=== PATIENT | female | born 1940 | race Caucasian/White ===

== ENCOUNTER 2020-01-21 18:35 | Emergency (ER) | payer MEDICARE, SELFPAY ==
--- NOTE | ~2020-01-21 | XR_ITS ---
EXAMINATION: XR chest 2V DATE: 01/21/2020 19:23 INDICATION: Chest pain and shortness of breath TECHNIQUE: frontal and lateral views of the chest were obtained. COMPARISON: Chest radiograph dated 06/29/2019 FINDINGS: The lungs remain clear with no focal airspace opacities, pulmonary edema, pleural effusion or pneumot horax. The cardiomediastinal silhouette is normal. Calcified subcarinal lymph node consistent with ol d granulomatous disease. Atherosclerotic aorta. Mild scattered degenerative skeletal changes. Lateral right clavicle resection. IMPRESSION: 1. No acute cardiopulmonary disease. Reviewed, dictated and finalized at location A. MOTIVE REPAIRER DIESEL
--- NOTE | ~2020-01-21 | CT_ITS ---
EXAMINATION: CTA chest PE protocol DATE: 01/21/2020 20:37 INDICATION: Chest pain. Dyspnea. TECHNIQUE: Computed tomography (CT) pulmonary angiogram of the chest was performed with 100 mL Omnipa que-350 intravenous contrast. Additional 3D reconstructions utilizing coronal maximum intensity proje ction (MIP) were performed. Automated exposure control and iterative reconstruction technique were em ployed. The dose-length product was 1001.39 mGy-cm. COMPARISON: None FINDINGS: Good contrast opacification of the pulmonary arteries. There is wall to moderate streak artifact from dense contrast in the superior vena cava and right atrium as well as cardiac monitoring leads. Mild to moderate scattered respiratory motion artifact. Overall this along with mild quantum mottle relate d to patient body habitus decreases sensitivity of the smaller subsegmental pulmonary arteries predom inantly at the lung bases. No definitive pulmonary embolism. Mild elevation of the left hemidiaphragm . Mild discoid atelectasis in the left lower lobe and lingula. No pneumonia, pulmonary edema or pleur al effusion. Cardiomegaly. Aortic valve calcification. No pericardial effusion. Thoracic aorta is nor mal in caliber with no dissection. Calcified mediastinal lymph nodes as well as multiple splenic and a few hepatic calcifications consistent with old granulomatous disease. No pathologically enlarged th oracic lymphadenopathy. Small sliding-type hiatal hernia versus wall thickening the distal esophagus. Cholecystectomy clips at the gallbladder fossa. There are bridging osteophytes at multiple levels in the spine, consistent with diffuse idiopathic skeletal hyperostosis (DISH). Distal right clavicle re section. IMPRESSION: 1. No pulmonary embolism. Sensitivity decreased in some of the smaller subsegmental pulmonary arterie s due to combination of streak and motion artifact along with mild quantum mottle from patient body h abitus. 2. Small hiatal hernia versus wall thickening in the distal esophagus suggesting possibility of reflu x. 3. Cardiomegaly. 4. Mild atelectasis in the lingula and left lower lobe with mild elevation of the left hemidiaphragm. Reviewed, dictated and finalized at location A. L MAKING SUPERVISOR IMPRESSION: 1. No pulmonary embolism. Sensitivity decreased in some of the smaller subsegme ntal pulmonary arteries due to combination of streak and motion artifact along with mild quantum mottle from patient body habitus. 2. Small hiatal hernia versus wall thickening in the distal esophagus suggestin g possibility of reflux. 3. Cardiomegaly. 4. Mild atelectasis in the lingula and left lower lobe with mild elevation of t he left hemidiaphragm.
[2020-01-21 18:40] VITALS: BP 197/87; PULSE 77; RESP 30; TEMP 37.6; O2SAT 99
--- NOTE | 2020-01-21 19:00 | ED.CHESTPAIN ---
HPI - Chest Pain General Chief Complaint: Chest Pain Stated Complaint: Chest pain Time Seen by Provider: 01/21/20 18:45 Source: patient Mode of arrival: ambulatory Limitations: no limitations History of Present Illness HPI narrative: 79-year-old with a history of COPD and who is oxygen dependent comes in today complaining of left-sided chest pain which is squeezing in nature and started about 45 minutes ago. Patient states that it has eased up some as she arrived. She has had no nausea, vomiting, lightheadedness, radiating pain, sweating , lightheadedness or syncope. she states she has been short of breath. On arrival her portable tank was empty. It is set on 4 liters/minute. She complain of left calf pain. MD complaint: chest pain Onset (ago): minute(s) (45) Timing of current episode: constant and still present Onset: during rest and after eating (10 minutes) Pain location: left chest Pain radiation: none Severity: severe Quality: tightness and sharp Relieving factors: nothing Exacerbating factors: nothing Associated symptoms: dyspnea Treatment prior to arrival: none Risk Factors Coronary artery disease risk factors: smoking history, hyperlipidemia and hypertension Related Data On Oral Contraceptives: No Home Medications Medication Instructions Recorded Confirmed aspirin [Aspirin Low Dose] 81 mg PO DAILY 01/21/20 01/21/20 citalopram 40 mg PO DAILY 01/21/20 01/21/20 famotidine 20 mg PO BID 01/21/20 01/21/20 ferrous sulfate 325 mg PO DAILY 01/21/20 01/21/20 folic acid 1 mg PO DAILY 01/21/20 01/21/20 furosemide 40 mg PO DAILY 01/21/20 01/21/20 glimepiride 1 mg PO DAILY 01/21/20 01/21/20 isosorbide mononitrate 30 mg PO DAILY 01/21/20 01/21/20 levothyroxine 175 mcg PO DAILY 01/21/20 01/21/20 lovastatin 20 mg PO DAILY 01/21/20 01/21/20 meloxicam 7.5 mg PO DAILY 01/21/20 01/21/20 montelukast 10 mg PO HS 01/21/20 01/21/20 ropinirole 0.5 mg PO HS 01/21/20 01/21/20 trazodone 50 mg PO HS 01/21/20 01/21/20 Allergies Allergy/AdvReac Type Severity Reaction Status Date / Time No Known Allergies Allergy Unverified 01/09/12 11:03 Review of Systems Constitutional: Constitutional: Denies chills, Denies fever(s) and Denies weakness Eyes: Eyes: Denies change in vision and Denies photophobia ENT: Denies dysphagia, Reports nasal congestion and Denies sore throat Cardiovascular: Cardiovascular: Reports chest pain, Denies rapid heart rate and Denies radiating jaw, neck or arm pain Respiratory: Respiratory: Reports chest congestion, Denies cough, Reports dyspnea and Reports wheezing Gastrointestinal: Gastrointestinal: Denies abdominal pain, Denies nausea and Denies vomiting Musculoskeletal: Musculoskeletal: Reports as per HPI and Denies joint swelling Comments: left lower leg pain Integumentary/Breasts: Skin/Breast: Denies pruritus, Denies erythema and Denies rash Neurologic: Denies vertigo, Denies dizziness and Denies syncope Psychiatric: Psychiatric: Denies anxiety and Denies depression Endocrine: Endocrine: Denies polydipsia and Denies polyuria Hematologic/Lymphatic: Hematologic/Lymphatic: Denies easy bleeding and Denies easy bruising Allergic/Immunologic: Allergic/Immunologic: Denies lip swelling and Reports wheezing (chronic) [facility] Past Medical History Medical History Anxiety CHF (congestive heart failure) COPD (chronic obstructive pulmonary disease) Depression Dyslipidemia GERD (gastroesophageal reflux disease) Hypothyroidism Neuropathy T2DM (type 2 diabetes mellitus) Surgical History Surgical History History of appendectomy History of ear surgery Hx of cardiac cath Hx of cholecystectomy Social History Social History Smoking status: Former smoker Alcohol intake: current Alcohol use details: Drinks socially Substance use: never
--- NOTE | 2020-01-21 19:02 | ECG_ITS ---
Measurements Intervals [place] Rate: P: GA: QRS: QRSD: T: QT: QTc: Interpretive Statements SINUS RHYTHM ATRIAL COUPLETS INCOMPLETE RIGHT BUNDLE BRANCH BLOCK DELAYED PRECORDIAL R/S TRANSITION INFERIOR INFARCT, AGE INDETERMINATE BORDERLINE ST-T WAVE ABNORMALITY- LATERAL LEADS BASELINE ARTIFACT- I, II, III, AVR, AVL, AVF ABNORMAL ECG Electronically Signed On 01-22-2020 7:36:20 TRANSCRIPTER by Zach Deleon D.O.
[2020-01-21 19:18] LABS: Basophils Absolute Auto 0.03 K/mm3 (0.00-0.10); Basophils Percent Auto 0.4 % (0.0-1.0); Eosinophils Absolute Auto 0.23 K/mm3 (0.02-0.50); Eosinophils Percent Auto 3.2 % (1.0-6.0); Hematocrit 39.8 % (35.0-42.0); Hemoglobin 12.1 g/dL (11.7-13.8); Immature Granulocyte Absolute 0.04 K/mm3 (0.00-0.00); Immature Granulocyte Percent A 0.6 % (0.0-0.0); Lymphocytes Absolute Auto 1.21 K/mm3 (1.10-4.50); Lymphocytes Percent Auto 16.8 % (18.0-42.0); Mean Corpuscular HGB Conc 30.4 g/dL (32.0-36.0); Mean Corpuscular Hemoglobin 28.1 pg (27.0-31.0); Mean Corpuscular Volume 92.6 fL (78.0-102.0); Mean Platelet Volume 9.8 fl (9.2-11.8); Monocytes Absolute Auto 0.74 K/mm3 (0.10-0.90); Monocytes Percent Auto 10.3 % (2.0-11.0); Neutrophils Percent Auto 68.7 % (50.0-70.0); Platelet Count Result 153 K/mm3 (150-420); Red Cell Distribution Width 13.6 % (11.6-14.4); White Blood Count 7.2 K/mm3 (4.8-10.8)
[2020-01-21] MEDS: NITROGLYCERIN SL 0.4 MG TABLET SUBLINGUAL (19:26)
[2020-01-21] MEDS: ASPIRIN 81 MG CHEWABLE TABLET 324 MG PO (19:26)
[2020-01-21 19:27] VITALS: BP 182/98; PULSE 65; RESP 28; O2SAT 99
[2020-01-21 19:34] LABS: Alanine Aminotransferase 16 U/L (14-59); Albumin Level 3.5 g/dL (3.4-5.0); Alkaline Phosphatase 64 U/L (46-116); Anion Gap 6.6 mmol/L (7-16); Aspartate Amino Transferase 17 U/L (15-37); Bilirubin,Total 0.2 mg/dL (0.00-1.00); Blood Urea Nitrogen 19 mg/dL (7-18); Calcium 8.8 mg/dL (8.5-10.1); Carbon Dioxide 41 mmol/L (21-32); Chloride 102 mmol/L (98-108); Estimated Glomerular Filt Rate 42; Glucose 139 mg/dL (70-99); Lipase 197 U/L (73-393); Osmolality Calculated 304 mOsm/kg (285-295); Potassium 4.6 mmol/L (3.5-5.1); Sodium 145 mmol/L (136-145); Total Protein 7.1 g/dL (6.4-8.2)
[2020-01-21 19:36] LABS: Troponin I < 0.02 ng/mL (0.00-0.056)
[2020-01-21 19:37] LABS: BNP 156 pg/mL (0-100)
--- NOTE | 2020-01-21 19:38 | PC.NURSE ---
Second dose of NTG 0.4mg given at this time for CP 0.5/10. BP 157/82, HR 61. (Unable to scan second dose on JAN).
[2020-01-21 19:44] LABS: INR 0.9; Partial Thromboplastin Time 25.2 SEC (22.3-31.6); Prothrombin Time 9.8 Seconds (9.64-11.0)
[2020-01-21 20:19] VITALS: BP 145/66; PULSE 70; RESP 28; O2SAT 95
--- NOTE | 2020-01-21 20:48 | PC.NURSE ---
Return from ct scan. Assisted to bathroom by w/c. Returned to room. Awaiting results for dispo. Pt requesting to sit on side of stretcher at this time.
[2020-01-21 20:49] VITALS: PULSE 62; RESP 32; O2SAT 99
[2020-01-21] MEDS: methylPREDNISolone SOD SUCC 40 MG VIAL 80 MG IV PUSH (21:12)
[2020-01-21 21:20] VITALS: BP 163/86; PULSE 67; RESP 34; O2SAT 99
== END 2020-01-21 21:20 | disposition home or self-care (01) ==
PROVIDERS: Emergency Provider Emergency Medicine
DX: J44.1 Chronic obstructive pulmonary disease with (acute) exacerbation (principal); R07.9 Chest pain, unspecified; I50.9 Heart failure, unspecified; K21.9 Gastro-esophageal reflux disease without esophagitis; E03.9 Hypothyroidism, unspecified; E11.9 Type 2 diabetes mellitus without complications; E11.40 Type 2 diabetes mellitus with diabetic neuropathy, unspecified
CPT/HCPCS: 36415; 71046; 71275; 80053; 83690; 83880; 84484; 85025; 85610; 85730; 93005; 96374; 99284; A9270; J2920; Q9965

== ENCOUNTER 2020-03-19 17:57 | Emergency (ER) | payer MEDICARE, SELFPAY ==
--- NOTE | ~2020-03-19 | XR_ITS ---
EXAMINATION: XR chest 2V EXAM DATE: 03/19/2020 18:55 INDICATION: Cough, shortness of breath, left pleuritic chest pain. TECHNIQUE: Frontal and lateral projections of the chest obtained and reviewed. Comparison is made to prior examination from 01/21/2020. FINDINGS: The lungs are clear. There are no pleural effusions. Cardiac silhouette is prominent but magnified on this AP technique. There is no pneumothorax suspected. There are mild bony degenerati ve changes. There is aortic arterial sclerosis. IMPRESSION: No acute cardiopulmonary findings. Reviewed, dictated and finalized at location A.
--- NOTE | 2020-03-19 18:15 | ECG_ITS ---
Measurements Intervals [place] Rate: 61 P: 57 [place]: 187 QRS: -49 QRSD: 108 T: 64 QT: 411 QTc: 415 Interpretive Statements SINUS RHYTHM INCOMPLETE RIGHT BUNDLE BRANCH BLOCK LEFT ANTERIOR FASCICULAR BLOCK INFERIOR INFARCT, AGE INDETERMINATE BASELINE ARTIFACT- III, V4-V5 ABNORMAL ECG Electronically Signed On 03-19-2020 19:07:33 CDT by Zach Deleon D.O.
--- NOTE | 2020-03-19 18:15 | ED.CHESTPAIN ---
HPI - Chest Pain General Chief Complaint: Upper Respiratory Infection Stated Complaint: chest pain, cough Time Seen by Provider: 03/19/20 18:15 Source: patient Mode of arrival: ambulatory Limitations: no limitations History of Present Illness HPI narrative: 80-year-old woman with a history of COPD and congestive heart failure comes today complaining of chest pain with cough and that has been present for the last 2 or 3 days. Patient states that she is no more short of breath than usual and has had no fever, cold symptoms or worsening cough. She states her cough is usually productive of green sputum. She denies any recent travel or sick exposures. Family states that she had negative stress test and had negative who he cardiac catheterization in the last year. MD complaint: chest pain Onset (ago): day(s) (2-3) Timing of current episode: episodic Onset: other Pain location: left chest, right chest and parasternal Pain radiation: none Severity: moderate Quality: sharp Relieving factors: rest Exacerbating factors: other (cough) Risk Factors Coronary artery disease risk factors: diabetes, smoking history, hyperlipidemia and hypertension Related Data Home Medications Medication Instructions Recorded Confirmed aspirin [Aspirin Low Dose] 81 mg PO DAILY 01/21/20 03/19/20 famotidine 20 mg PO BID 01/21/20 03/19/20 ferrous sulfate 325 mg PO DAILY 01/21/20 03/19/20 folic acid 1 mg PO DAILY 01/21/20 03/19/20 furosemide 40 mg PO DAILY 01/21/20 03/19/20 glimepiride 1 mg PO DAILY 01/21/20 03/19/20 isosorbide mononitrate 30 mg PO DAILY 01/21/20 03/19/20 levothyroxine 175 mcg PO DAILY 01/21/20 03/19/20 lovastatin 20 mg PO DAILY 01/21/20 03/19/20 meloxicam 7.5 mg PO DAILY 01/21/20 03/19/20 montelukast 10 mg PO HS 01/21/20 03/19/20 ropinirole 0.5 mg PO HS 01/21/20 03/19/20 trazodone 50 mg PO HS 01/21/20 03/19/20 Allergies Allergy/AdvReac Type Severity Reaction Status Date / Time No Known Allergies Allergy Unverified 01/09/12 11:03 Review of Systems Constitutional: Constitutional: Denies chills and Denies fever(s) ENT: Denies dysphagia, Denies nasal congestion and Denies sore throat Cardiovascular: Cardiovascular: Reports chest pain and Denies radiating jaw, neck or arm pain Respiratory: Respiratory: Reports as per HPI, Reports cough, Reports dyspnea and Reports wheezing Gastrointestinal: Gastrointestinal: Denies abdominal pain, Denies nausea and Denies vomiting Neurologic: Denies vertigo, Denies dizziness and Denies syncope Hematologic/Lymphatic: Hematologic/Lymphatic: Denies easy bleeding and Denies easy bruising Allergic/Immunologic: Allergic/Immunologic: Denies lip swelling and Denies wheezing [facility] Social History Social History Smoking status: Former smoker Alcohol intake: current Substance use: never Gender identity (if verbalized by the patient): Male Exam Const: General: alert Nutritional Appearance: obese Orientation/consciousness: patient oriented x3 Other: Mild acute distress HENMT: Ears: external ears normal, TM's normal bilaterally and EAC's normal Mouth: Yes Normal oral and palatal mucosa present and Yes moist mucous membranes Throat: posterior oropharynx normal and uvula midline Eyes: Conjunctivae: conjunctivae normal Resp: Effort & Inspection: normal respiratory effort and not labored Auscultation: clear to auscultation bilaterally, wheezes expiratory wheezes and throughout and diminished lung sounds diffuse Cardio: Rate: regular rate Rhythm: regular rhythm Heart sounds: no murmurs Skin: General skin exam: normal color, no jaundice and no pallor Rashes: no rashes Neuro: General: patient oriented x3, moves all extremities, no focal motor deficits and CN's II-XI intact bilaterally Extrem: General: normal to inspection and no clubbing, cyanosis or edema Psych: Appearance: grossly normal and well kempt Mental Status: mental status
[2020-03-19] MEDS: IPRATROPIUM 0.5 MG/ALBUTEROL SULFATE 2.5 MG AMPUL.NEB 3 ML INHALATION (18:24)
[2020-03-19 18:25] VITALS: PULSE 70; RESP 20
[2020-03-19 18:26] VITALS: BP 160/47; PULSE 72; RESP 22; O2SAT 97
[2020-03-19 18:30] VITALS: PULSE 75; RESP 20
--- NOTE | 2020-03-19 18:36 | PC.NURSE ---
FAMILY CALLS THIS RN AND IS SCREAMING THAT HER FAMILY IS GOING TO CALL ADMINISTRATION BECAUSE VISITORS ARE NOT ALLOWED AND THE PATIENT HAS DEMENTIA. IS OFFERED COMFORT IN THAT HER MOTHER IS DOING FINE AND HAS ANSWERED ALL QUESTIONS APPROPRIATELY FOR ME AND ERP. I ALSO TOLD FAMILY MEMBER THAT SHE IS WELCOME TO COME UP AND I CAN GIVE HER UPDATES WHILE IN THE PARKING LOT. CALLER CURSING AT STAFF AND THEN HANGS UP.
[2020-03-19 18:56] LABS: Basophils Absolute Auto 0.04 K/mm3 (0.00-0.10); Basophils Percent Auto 0.4 % (0.0-1.0); Eosinophils Absolute Auto 0.27 K/mm3 (0.02-0.50); Eosinophils Percent Auto 2.9 % (1.0-6.0); Hematocrit 42.1 % (35.0-42.0); Hemoglobin 13.4 g/dL (11.7-13.8); Immature Granulocyte Absolute 0.03 K/mm3 (0.00-0.00); Immature Granulocyte Percent A 0.3 % (0.0-0.0); Lymphocytes Absolute Auto 3.18 K/mm3 (1.10-4.50); Lymphocytes Percent Auto 33.7 % (18.0-42.0); Mean Corpuscular HGB Conc 31.8 g/dL (32.0-36.0); Mean Corpuscular Hemoglobin 28.6 pg (27.0-31.0); Mean Platelet Volume 10.1 fl (9.2-11.8); Monocytes Absolute Auto 0.84 K/mm3 (0.10-0.90); Monocytes Percent Auto 8.9 % (2.0-11.0); Neutrophils Absolute Auto 5.1 K/mm3 (1.7-7.2); Neutrophils Percent Auto 53.8 % (50.0-70.0); Platelet Count Result 190 K/mm3 (150-420); Red Blood Count 4.68 M/mm3 (4.20-5.40); Red Cell Distribution Width 13.4 % (11.6-14.4); White Blood Count 9.4 K/mm3 (4.8-10.8)
[2020-03-19 19:19] LABS: Alanine Aminotransferase 17 U/L (14-59); Albumin Level 3.9 g/dL (3.4-5.0); Alkaline Phosphatase 63 U/L (46-116); Aspartate Amino Transferase 17 U/L (15-37); Bilirubin,Total 0.2 mg/dL (0.00-1.00); Blood Urea Nitrogen 19 mg/dL (7-18); Calcium 9.1 mg/dL (8.5-10.1); Carbon Dioxide 38 mmol/L (21-32); Chloride 100 mmol/L (98-108); Estimated Glomerular Filt Rate 34; Glucose 105 mg/dL (70-99); Osmolality Calculated 296 mOsm/kg (285-295); Sodium 142 mmol/L (136-145); Total Protein 7.3 g/dL (6.4-8.2)
[2020-03-19 19:20] LABS: Troponin I < 0.02 ng/mL (0.00-0.056)
[2020-03-19] MEDS: predniSONE 20 MG TABLET 40 MG PO (19:30)
[2020-03-19] MEDS: DOXYCYCLINE HYCLATE 100 MG TABLET PO (19:31)
[2020-03-19 19:45] VITALS: BP 133/71; O2SAT 99
== END 2020-03-19 19:46 | disposition home or self-care (01) ==
PROVIDERS: Emergency Provider Emergency Medicine
DX: R07.81 Pleurodynia (principal); J44.1 Chronic obstructive pulmonary disease with (acute) exacerbation; Z87.891 Personal history of nicotine dependence
CPT/HCPCS: 36415; 71046; 80053; 84484; 85025; 93005; 94640; 99284; A9270; J7512

== ENCOUNTER 2020-08-17 06:34 | Emergency (ER) | payer MEDICARE, SELFPAY ==
[2020-08-17] VITALS (8 sets, daily range): BP systolic 118–126; BP diastolic 80–104; PULSE 57–115; RESP 21–26; TEMP 36.4; O2SAT 83–100
--- NOTE | ~2020-08-17 | CT_ITS ---
EXAMINATION: CT brain wo con DATE: 08/17/2020 06:44 INDICATION: CVA. Stroke protocol. TECHNIQUE: Computed tomography (CT) of the head was performed without intravenous contrast. The dose- length product was 605.33 mGy-cm. The mA was adjusted according to patient size. Iterative reconstruc tion technique was employed. COMPARISON: None FINDINGS: There is an acute hemorrhage centered in the left basal ganglia measuring 2.8 x 2.1 cm with mild surrounding vasogenic edema. Mild generalized atrophy. There is intracranial atherosclerosis. N o significant midline shift. No ventriculomegaly. Paranasal sinuses and mastoids are pneumatized. No depressed skull fractures. There are scattered mild periventricular and subcortical white matter alfonso ges, most likely related to small vessel ischemic disease (microangiopathy). IMPRESSION: 1. Acute parenchymal hemorrhage centered in the left basal ganglia with mild surrounding vasogenic ed kylah. As per stroke protocol, I called these results to emergency room, discussed with Dr. Iveth Orozco MD at 08/17/2020 06:47 CDT. Reviewed, dictated and finalized at location A. IMPRESSION: 1. Acute parenchymal hemorrhage centered in the left basal ganglia with mild cruz rrounding vasogenic edema. As per stroke protocol, I called these results to emergency room, discussed wit h Dr. Iveth Orozco MD at 08/17/2020 06:47 CDT.
--- NOTE | ~2020-08-17 | XR_ITS ---
XR chest ET placement 08/17/2020 07:27 Indication: Shortness of breath. Cough. Procedure: AP portable chest Comparison: 03/19/2026 Findings: Cardiomegaly. Endotracheal tube tip 1.6 cm above the jeremiah. NG tube in the stomach. Densel y calcified mediastinal lymph node in the subcarinal location. There is atherosclerosis. There is per ibronchial thickening with mild pulmonary vascular congestion. Infiltrates of the left mid and lower lung. Impression: 1: Infiltrates of the left mid and lower lung which may represent atelectasis/scarring or developing pneumonia. 2: Cardiomegaly with pulmonary vascular congestion. Reviewed, dictated and finalized at location A. Impression: 1: Infiltrates of the left mid and lower lung which may represent atelectasis/s carring or developing pneumonia. 2: Cardiomegaly with pulmonary vascular congestion.
--- NOTE | ~2020-08-17 | XR_ITS ---
XR abdomen NG/feed tube insert INDICATION: Evaluate NG tube position. TECHNIQUE: Limited KUB perform for evaluating NG tube . COMPARISON: No prior studies for comparison. FINDINGS: NG tube tip in the stomach. Visualized bowel gas pattern is unremarkable. IMPRESSION: 1: NG tube tip in the stomach. Reviewed, dictated and finalized at location A.
--- NOTE | 2020-08-17 06:32 | ED.NEUROSD ---
HPI - Neuro Symptoms/Deficit General Chief Complaint: Suspected CVA Stated Complaint: Stroke Source: patient and EMS Mode of arrival: EMS Limitations: language barrier (Dysarthria) History of Present Illness HPI Narrative: Patient is a 80-year-old female with a history of COPD, CHF, diabetes who presents for evaluation of possible stroke. Patient awakened this morning per family with slurred speech, not acting at baseline. Patient unable to move her right side. Patient listing to the right. Patient last seen normal when she went to bed at 11 PM August 16. Patient without history of stroke. Additional history unable to be obtained, patient able to follow simple commands, awake, nonverbal, unable to state her name or provide any history. Per family, patient is not on any anticoagulation. Related Data Home Medications Medication Instructions Recorded Confirmed aspirin [Aspirin Low Dose] 81 mg PO DAILY 01/21/20 03/19/20 famotidine 20 mg PO BID 01/21/20 03/19/20 ferrous sulfate 325 mg PO DAILY 01/21/20 03/19/20 folic acid 1 mg PO DAILY 01/21/20 03/19/20 furosemide 40 mg PO DAILY 01/21/20 03/19/20 glimepiride 1 mg PO DAILY 01/21/20 03/19/20 isosorbide mononitrate 30 mg PO DAILY 01/21/20 03/19/20 levothyroxine 175 mcg PO DAILY 01/21/20 03/19/20 lovastatin 20 mg PO DAILY 01/21/20 03/19/20 meloxicam 7.5 mg PO DAILY 01/21/20 03/19/20 montelukast 10 mg PO HS 01/21/20 03/19/20 ropinirole 0.5 mg PO HS 01/21/20 03/19/20 trazodone 50 mg PO HS 01/21/20 03/19/20 Allergies Allergy/AdvReac Type Severity Reaction Status Date / Time No Known Allergies Allergy Unverified 01/09/12 11:03 Review of Systems Review of Systems: ROS unobtainable: Yes unobtainable due to mental status [facility] Past Medical History Medical History Anxiety CHF (congestive heart failure) COPD (chronic obstructive pulmonary disease) Depression Dyslipidemia GERD (gastroesophageal reflux disease) Hypothyroidism Neuropathy T2DM (type 2 diabetes mellitus) Surgical History Surgical History History of appendectomy History of ear surgery Hx of cardiac cath Hx of cholecystectomy Social History Social History (Updated 08/17/20 @ 06:42 by Iveth Orozco MD) Smoking status: Former smoker Alcohol intake: current Substance use: never Gender identity (if verbalized by the patient): Female Exam Narrative: Exam Narrative: GENERAL: Awake, somnolent but arousable, chronically ill-appearing HEAD: Normocephalic, atraumatic. EYES: PERRLA and EOMI. ENT: Nares clear, no rhinorrhea or epistaxis. Mucous membranes moist. NECK: Supple. CHEST: Somewhat labored respirations, coarse breath sounds bilaterally HEART: Regular rate, sinus rhythm ABDOMEN:Non distended, non tender EXTREMITIES: No edema SKIN: Warm, dry, no rash. NEURO: No spontaneous movement in the right upper and right lower extremity. Patient can attempt to follow simple commands, asset specialist strength is 5 out of 5 in the left upper extremity, able to wiggle toes in the left lower extremity. When asked to touch her finger to her nose she touches her forehead. Course Vital Signs Vital signs: Vital Signs Pulse Rate 59 L 08/17/20 06:46 Respiratory Rate 21 H 08/17/20 06:46 Temperature 36.4 C 08/17/20 06:47 Pulse Rate 77 08/17/20 07:19 Respiratory Rate 23 H 08/17/20 07:19 Blood Pressure 118/104 H 08/17/20 07:19 Pulse Oximetry 83 L 08/17/20 07:19 Procedures Intubation Intubation #1: Intubation Date: 08/17/20 Intubation Time: 07:23 Time out performed: Yes sedative: Etomidate Mg Given: 20 paralytic: Succinylcholine Mg Given: 100 Laryngoscope: other (Videolaryngoscope) Tube Size (cm): 7.0 Method of Intubation: orotracheal Number of Attempts: 1 Tube Secured Depth (cm): 22 Tube Secured Lo
--- NOTE | 2020-08-17 06:37 | ECG_ITS ---
Measurements Intervals [place] Rate: 57 P: 70 [place]: 205 QRS: -45 QRSD: 89 T: 75 QT: 388 QTc: 380 Interpretive Statements SINUS BRADYCARDIA LEFT AXIS DEVIATION BORDERLINE AV CONDUCTION DELAY INCOMPLETE RIGHT BUNDLE BRANCH BLOCK LOW QRS VOLTAGE IN PRECORDIAL LEADS INFERIOR INFARCT, AGE INDETERMINATE BORDERLINE ST-T WAVE ABNORMALITY- HIGH LATERAL LEADS BASELINE ARTIFACT- I, II, III, AVR, AVL, AVF, V4-V6 ABNORMAL ECG Electronically Signed On 08-17-2020 8:11:02 CDT by Zach Deleon D.O.
[2020-08-17 06:53] LABS: Glucose Point of Care 132 (65-105)
[2020-08-17 07:03] LABS: Basophils Percent Auto 0.6 % (0.2-1.2); Eosinophils Absolute Auto 0.3 K/mm3 (0-0.3); Eosinophils Percent Auto 5.2 % (0-4.4); Hematocrit 45.4 % (37.0-47.0); Hemoglobin 14.4 g/dL (12.0-15.0); Immature Granulocyte Absolute 0.04 K/mm3 (0.00-0.031); Immature Granulocyte Percent A 0.6 % (0-0.5); Immature Platelet Fraction Pct 3.4 % (0.9-11.2); Lymphocytes Absolute Auto 1.65 K/mm3 (0.9-3.2); Lymphocytes Percent Auto 26.7 % (18.3-44.2); Mean Corpuscular HGB Conc 31.7 g/dl (32-36); Mean Corpuscular Volume 91.3 fl (80-100); Mean Platelet Volume 10.6 fl (7.4-10.4); Monocytes Absolute Auto 0.7 K/mm3 (0.1-0.6); Monocytes Percent Auto 10.7 % (2.6-8.5); Neutrophils Absolute Auto 3.5 K/mm3 (1.3-6.7); Neutrophils Percent Auto 56.2 % (45.5-73.1); Platelet Count Result 163 k/mm3 (150-375); Red Blood Count 4.97 M/mm3 (4.2-5.4); Red Cell Distribution Width 14.1 % (11.5-14.5); White Blood Count 6.2 K/mm3 (4.5-10.0)
[2020-08-17 07:08] LABS: Alveolar/Arterial O2 Gradient 18.1 mmHg; Base Excess ABG 3.4 mEq/l (+/-2.0); Carboxyhemoglobin 0.1 % THb (0-2.0); Fractional Inspired Oxygen 32 %; HCO3 ABG 30.8 mEq/l (22.0-26.0); Methemoglobin ABG 0.3 %THb (0-1.5); Oxygen Content ABG 18.9 %vol (16.0-22.0); Oxygen Saturation ABG 98.6 % (95.0-100.0); Oxyhemoglobin 96.9 % THb (90.0-100.0); PCO2 ABG 59.3 mmHg (35.0-45.0); PO2 ABG 140.7 mmHg (80.0-100.0); Reduced Hemoglobin 2.7 %THb (0-5.0); Total Hemoglobin 13.7 g/dL (12.0-18.0); pH ABG 7.333 (7.350-7.450)
--- NOTE | 2020-08-17 07:08 | PC.NURSE ---
Pt being prepped for intubation.
[2020-08-17 07:09] LABS: Device NASAL CANNULA; Modified Allen's Test Pass; Site Drawn RIGHT RADIAL
--- NOTE | 2020-08-17 07:09 | PC.NURSE ---
Etomidate 20 mg IVP.
--- NOTE | 2020-08-17 07:10 | PC.NURSE ---
Succ 100 mg IVP.
--- NOTE | 2020-08-17 07:11 | PC.NURSE ---
7.0 ET tube placed at 22 lipline. Placement verified with co2 detection and auscultation.
[2020-08-17 07:13] LABS: Alanine Aminotransferase 15 U/L (4-35); Albumin Level 4.3 g/dL (3.5-5.1); Alkaline Phosphatase 61 U/L (38-126); Anion Gap 4 mmol/L (8-16); Aspartate Amino Transferase 33 U/L (14-36); Bilirubin,Total 0.5 mg/dL (0.2-1.3); Blood Urea Nitrogen 19 mg/dL (7-17); Calcium 9.3 mg/dL (8.4-10.2); Carbon Dioxide 37 mmol/L (22-30); Chloride 97 mmol/L (98-107); Estimated Glomerular Filt Rate 48; Glucose 141 mg/dL (65-105); Potassium 4.4 mmol/L (3.4-5.0); Sodium 138 mmol/L (137-145)
--- NOTE | 2020-08-17 07:23 | PC.NURSE ---
Versed 5 mg IVP. Pt attempting to awaken. Being bagged by RT.
[2020-08-17 07:25] LABS: Partial Thromboplastin Time 28.2 SECONDS (22.3-36.8); Prothrombin Time 12.4 Seconds (11.1-14.7)
[2020-08-17 07:26] LABS: Troponin I 0.015 ng/mL (0.000-0.034)
--- NOTE | 2020-08-17 07:28 | PC.NURSE ---
#1d6 latvian perea placed.
[2020-08-17 07:47] LABS: Add Urine Microscopic? YES; Appearance Urine Clear (Clear); Bilirubin Urine Negative (Negative); Blood Urine 1+ (Negative); Color Urine Straw (Yellow); Glucose Urine UA Negative (Negative); Ketones Urine Negative (Negative); Leukocyte Esterase Ur Trace LEU/UL (Negative); Mucus Urine Rare /lpf; Nitrate Urine Negative (Negative); Protein Urine 1+ mg/dL (Negative); Specific Grav Ur 1.012 (1.001-1.035); Urobilinogen Urine Negative mg/dL (<2.0); WBC Urine 31-50 /hpf
[2020-08-17] MEDS: FENTANYL 2,500MCG/NS250ML(*CRX 2,500 MCG/250 ML BAG IV CONT (07:52)
--- NOTE | 2020-08-17 07:52 | PC.NURSE ---
Versed gtt started at 5mg/hr, Fentanyl gtt started at 25 mcg/hr. EMS at bedside for transport.
--- NOTE | 2020-08-17 08:11 | PC.NURSE ---
To [facility] via [facility].
== END 2020-08-17 08:13 | disposition short-term general hospital (02) ==
PROVIDERS: Emergency Provider Emergency Medicine; PCP Family Medicine
DX: I62.9 Nontraumatic intracranial hemorrhage, unspecified (principal); J44.9 Chronic obstructive pulmonary disease, unspecified; I50.9 Heart failure, unspecified; Z86.73 Personal history of transient ischemic attack (TIA), and cerebral infarction without residual deficits; E11.9 Type 2 diabetes mellitus without complications; R00.1 Bradycardia, unspecified; I45.10 Unspecified right bundle-branch block; R94.31 Abnormal electrocardiogram [ECG] [EKG]; Z79.82 Long term (current) use of aspirin; Z79.84 Long term (current) use of oral hypoglycemic drugs
CPT/HCPCS: 31500; 36415; 36600; 51702; 70450; 80053; 81001; 82375; 82805; 82948; 83050; 84484; 85025; 85055; 85610; 85730; 87086; 87088; 93005; 96365; 96375; 99291; J2250; J3010